=== PATIENT | female | born 1940 | race Two or more races ===

== ENCOUNTER 2020-08-19 00:27 | Inpatient (IN) | payer OTHER ==
[~2020-08-19] VITALS: Ht 154.9 cm; Wt 54.4 kg
[2020-08-19] MEDS ORDERED: METFORMIN HCL1000 M2 (00:38)
[2020-08-19] MEDS ORDERED: GLIPIZIDE ER10 MG (00:38)
[2020-08-19] MEDS ORDERED: ZESTRIL40 M1 (00:38)
[2020-08-19] MEDS ORDERED: DIALYVITE 800-1 EACH (00:39)
== END 2020-08-24 20:01 | disposition home or self-care (01) | DRG 481 ==
LOC: ER 00:27 → SEC-K 10:50 → SURG 10:50 → O/R 19:12 → SURG 08-20 13:16
PROVIDERS: Orthopaedic Surgery; ADMIT Internal Medicine; ATTEND Internal Medicine
PROC: 30233N1 Transfusion of Nonautologous Red Blood Cells into Peripheral Vein, Percutaneous Approach (ICD-10-PCS; 2020-08-19)
PROC: 0QS636Z Reposition Right Upper Femur with Intramedullary Internal Fixation Device, Percutaneous Approach (ICD-10-PCS; principal; 2020-08-19 15:00)
DX: S72.141A Displaced intertrochanteric fracture of right femur, initial encounter for closed fracture (principal); D62 Acute posthemorrhagic anemia; E11.9 Type 2 diabetes mellitus without complications; I10 Essential (primary) hypertension; F03.90 Unspecified dementia, unspecified severity, without behavioral disturbance, psychotic disturbance, mood disturbance, and anxiety; Z20.822 Contact with and (suspected) exposure to COVID-19; Z79.4 Long term (current) use of insulin; W18.30XA Fall on same level, unspecified, initial encounter

== ENCOUNTER 2020-08-28 14:56 | Emergency (ER) | payer OTHER ==
[~2020-08-28] VITALS: Ht 152.4 cm; Wt 59.0 kg
[~2020-08-28 14:56] MED LIST: DIALYVITE 800-1 EACH; GLIPIZIDE ER10 MG; METFORMIN HCL1000 M2; ZESTRIL40 M1
== END 2020-08-28 17:28 | disposition home or self-care (01) ==
LOC: ER 14:56
DX: D17.24 Benign lipomatous neoplasm of skin and subcutaneous tissue of left leg (principal)